=== PATIENT | male | born 1985 | race Caucasian/White ===

== ENCOUNTER → 2017-05-03 | Outpatient (CLI) | payer OTHER ==
[~2017-05-03] MED LIST: CONRAY-43 43% 50ML VIAL (Q9960) As Ordered ONE; LIDOCAINE 1% MDV 20ML VIAL As Ordered ONE; TRIAMCINOLONE ACETONIDE SUSP 40 MG/ML VIAL (J3301) As Ordered ONE
--- NOTE | 2017-05-04 09:00 | REP ---
Right hip injection The procedure was performed under the direct supervision of Dr. Fernandez. The benefits and risks including but not limited to pain infection and bleeding and anaphylaxis were explained to the patient and informed consent was obtained. The right femoral neck was localized using fluoroscopic guidance. The skin was prepped and draped in a sterile fashion. 1% lidocaine was used as a local anesthetic. Using fluoroscopic guidance a 22-gauge spinal needle was inserted and advanced to the femoral neck. 0.5 ml of Conray 43 was injected to verify placement. 10 ml of a solution containing 9 ml of 1% Xylocaine and 1 ml of Kenalog 40 mg was injected. The needle was then removed. The patient tolerated the procedure well and there were no immediate complications. Five seconds of fluoro time was utilized for this procedure. Reviewed by ERIKA Marte 05/03/2017 05:44 PSigned by Diego Fernandez MD 05/04/2017 08:51 A
== END ==
LOC: M RADPRO 09:27
PROVIDERS: ATTEND Orthopaedic Surgery
DX: M25.551 Pain in right hip (principal)
CPT/HCPCS: 20610; 77002; J3301; Q9960